=== PATIENT | male | born 1965 | race African-American/Black ===

== ENCOUNTER 2019-08-25 15:08 | Emergency (ER) | payer OTHER ==
[~2019-08-25 15:08] MED LIST: Iopamidol 370 76% 100 ML VIAL ONE
[2019-08-25 15:41] LABS: ALT (SGPT) 30 U/L (8-55); AST (SGOT) 24 U/L (5-34); Albumin 4.4 g/dL (3.5-5.0); Alkaline Phosphatase 50 U/L (40-110); Anion Gap 15 mmol/L (10-20); BUN (Urea Nitrogen) 13 mg/dL (8.4-25.7); Bilirubin, Total 0.4 mg/dL (0.2-1.2); Calc. Creatinine Clearance 0 mL/min (70-130); Calcium 9.5 mg/dL (7.8-10.44); Carbon Dioxide 25 mmol/L (22-29); Chloride 104 mmol/L (98-107); Estimated GFR-MDRD 77; Globulin 3.1 g/dL (2.4-3.5); Glucose 125 mg/dL (70-105); Potassium 3.6 mmol/L (3.5-5.1); Protein, Total 7.5 g/dL (6.0-8.3); Sodium 140 mmol/L (136-145)
[2019-08-25 15:42] LABS: Eosinophils 2 % (0-10); Hemoglobin 15.6 g/dL (14.0-18.0); Lymphocytes 61 % (21-51); MDiff Complete? YES; Mean Corpuscular HGB CONC 31.7 g/dL (32.0-36.0); Mean Corpuscular Hemoglobin 28.9 pg (27.0-31.0); Mean Corpuscular Volume 91.1 fL (78.0-98.0); Mean Platelet Volume 9.1 fL (7.4-10.4); Monocytes 6 % (0-10); Neutrophil 31 % (42-75); Platelet Count 237 thou/uL (130-400); RBC Distribution Width 13.3 % (11.5-14.5); White Blood Cell (WBC) Count 6.5 thou/uL (4.8-10.8)
[2019-08-25] MEDS ORDERED: Ketorolac Tromethamine 30 MG/ML VIAL ONE (16:28)
--- NOTE | 2019-08-25 16:57 | RAD ---
LEFT FOOT THREE VIEWS: 08/25/19 No fracture or acute joint abnormality was seen. Mild hallux valgus is present with mild bunion defor mity involving the first metatarsal head. IMPRESSION: No acute findings. POS: HOME
--- NOTE | 2019-08-25 17:02 | RAD ---
LEFT LE08/25/19 Multiple views in the AP and lateral projections show no sign of fracture. The tibia and fibula appea r intact. There is some periosteal reaction along the mid tibial shaft at its interosseous margin. The signific ance of the finding is unknown but it appears benign. There may have been an old stress injury here. IMPRESSION: No acute bony findings. POS: HOME
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
--- NOTE | 2019-08-25 17:06 | CT ---
CT OF THE BRAIN WITHOUT CONTRAST: 08/25/19 The ventricles are normal in size with no shift. No intracranial bleeding or extra-axial hematoma was seen. There is no sign of stroke, mass or edema. A punctate calcification is seen in the high left p osterior frontal/anterior parietal region. This is probably not currently significant. The skull is i ntact. The sphenoid sinus and visible paranasal sinuses are clear. There are probably some mucous ret ention cysts or polyps in the floor of each maxillary sinus. IMPRESSION: No acute intracranial findings. Preliminary report called to Dr. Estevez at 1553 on 08/25/2019. POS: HOME
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
== END 2019-08-25 16:56 | disposition home or self-care (01) ==
LOC: BURERS 15:08
DX: S00.93XA Contusion of unspecified part of head, initial encounter (principal); S40.012A Contusion of left shoulder, initial encounter; S90.32XA Contusion of left foot, initial encounter; E78.00 Pure hypercholesterolemia, unspecified; E78.5 Hyperlipidemia, unspecified; I10 Essential (primary) hypertension; Z79.82 Long term (current) use of aspirin; Z79.899 Other long term (current) drug therapy; V43.02XA Car driver injured in collision with other type car in nontraffic accident, initial encounter; W22.11XA Striking against or struck by driver side automobile airbag, initial encounter
CPT/HCPCS: 70450; 71260; 72125; 74177; 80053; 85025; 94760; 96374; G0390; J1885; Q9967